=== PATIENT | male | born 1965 ===

== ENCOUNTER 2018-08-05 21:09 | Emergency (ER) | payer OTHER ==
[~2018-08-05] VITALS: Ht 177.8 cm; Wt 79.4 kg
[2018-08-05] MEDS ORDERED: diphenhydrAMINE 50 MG/1 ML VIAL IM ONE (21:30)
[2018-08-05] MEDS ORDERED: diphenhydrAMINE 50 MG/1 ML VIAL ONE (21:46)
--- NOTE | 2018-08-05 21:55 | NUR ---
Patient discharged to home in stable conditon. Written and verbal after care instructions given. Patient verbalizes understanding of instructions. Pt ambulated out of ER in steady gait accompanied by family member who will drive home. All belongings with pt. VSS. NAD noted.
[2018-08-05 21:57] VITALS: BP 126/79
== END 2018-08-05 22:02 | disposition home or self-care (01) ==
LOC: ER 21:15
DX: L50.0 Allergic urticaria (principal); E78.00 Pure hypercholesterolemia, unspecified
CPT/HCPCS: A4663; J1200